=== PATIENT | male | born 1980 | race Caucasian/White ===

== ENCOUNTER 2017-08-11 18:09 | Emergency (ER) | payer MEDICAID ==
[~2017-08-11] VITALS: Ht 188 cm; Wt 106.8 kg
[2017-08-11] MEDS ORDERED: ALBU8HFA IH (18:33)
[2017-08-11] MEDS ORDERED: ACETAMINOPHEN 500 MG TABLET PO ONE (18:45)
[2017-08-11] MEDS ORDERED: BACITRACIN 0.9 GM PACKET OINTMENT TP ONE (19:45)
[2017-08-11 19:57] VITALS: BP 135/87
== END 2017-08-11 19:59 | disposition home or self-care (01) ==
LOC: EMS 18:12
DX: S56.912A Strain of unspecified muscles, fascia and tendons at forearm level, left arm, initial encounter (principal); S30.1XXA Contusion of abdominal wall, initial encounter; S50.312A Abrasion of left elbow, initial encounter; S09.90XA Unspecified injury of head, initial encounter; J45.909 Unspecified asthma, uncomplicated; F12.90 Cannabis use, unspecified, uncomplicated; F17.210 Nicotine dependence, cigarettes, uncomplicated; Z88.5 Allergy status to narcotic agent; V48.6XXA Car passenger injured in noncollision transport accident in traffic accident, initial encounter; Y93.89 Activity, other specified; Y92.89 Other specified places as the place of occurrence of the external cause; Y99.8 Other external cause status
CPT/HCPCS: 99284